=== PATIENT | female | born 1985 | race Caucasian/White ===

== ENCOUNTER 2021-10-11 22:27 | Emergency (ER) | payer OTHER ==
[~2021-10-11] VITALS: Ht 170.2 cm; Wt 104.3 kg
[2021-10-11 22:42] VITALS: BP_SYST 130
--- NOTE | 2021-10-12 00:26 | NUR ---
Patient to ER chair orona to jacquelyn for evaluation. Side rails up. Report given to Alex GODOY.
--- NOTE | 2021-10-12 00:35 | NUR ---
ER Dr.Dela Lloyd at bedside examining patient.
--- NOTE | 2021-10-12 01:40 | NUR ---
JILLIAN, RN PT STABLE FOR D/C TO HOME. TO,LOBBY AMB WITH ALL PAPERWORK IN HAND. PT C/O RIGHT HAND PAIN. ODERS RECIEVED FROM DR. KHALIL AND PT MEDICATED PRIOR TO DISCHARGE.
[2021-10-12 01:43] VITALS: BP_SYST 122
[2021-10-12] MEDS ORDERED: IBUPROFEN 800 MG TABLET PO ONE (01:45)
== END 2021-10-12 01:43 | disposition home or self-care (01) ==
LOC: SED 22:27
DX: S66.911A Strain of unspecified muscle, fascia and tendon at wrist and hand level, right hand, initial encounter (principal); S60.221A Contusion of right hand, initial encounter; Y04.0XXA Assault by unarmed brawl or fight, initial encounter; Y93.89 Activity, other specified; Y92.89 Other specified places as the place of occurrence of the external cause; Y99.8 Other external cause status
CPT/HCPCS: 71046-TC; 99284